=== PATIENT | female | born 1970 | race Caucasian/White ===

== ENCOUNTER → 2019-06-25 | Outpatient (CLI) | payer BC | LOC: MC.RAD 06:55 | DX: R92.8 Other abnormal and inconclusive findings on diagnostic imaging of breast (principal); Z98.82 Breast implant status ==

== ENCOUNTER 2023-12-04 16:02 | Emergency (ER) | payer BC ==
[~2023-12-04] VITALS: Ht 180.3 cm; Wt 104.5 kg
[~2023-12-04 16:02] MED LIST: CEFTIN500 MG PO; EFFEXOR 50M50 MG/TAB PO; NOLVADEX 1010 MG/TAB PO; PYRIDIUM200 M1 PO; SYNTHROID 0.0.025 MG PO
[2023-12-04 16:28] LABS: BASO # 0.1 K/mm3 (0.0-0.2); BASO % 0.9 % (0.0-2.0); EOS # 0.3 K/mm3 (0.0-0.7); EOS % 4.3 % (0.0-4.0); GRAN # 3.1 K/mm3 (1.4-6.5); GRAN % 52.7 % (42.2-75.2); HEMATOCRIT 38.1 % (37.0-47.0); HEMOGLOBIN 13.3 g/dl (12.5-16.0); LYMPH % 35.2 % (20.0-51.0); MEAN CELL VOLUME 90 fl (80.0-100.0); MEAN CORPUSCULAR HEMOGLOBIN 31 pg (27-31); MEAN CORPUSCULAR HGB CONC 35 g/dl (33.0-37.0); MEAN PLATELET VOLUME 9.6 fl (7.4-10.4); MONO # 0.4 K/mm3 (0.1-0.6); MONO % 6.6 % (1.7-9.3); PLATELET COUNT 230 K/mm3 (130-400); RED BLOOD COUNT 4.25 M/mm3 (4.10-5.30); REDCELL DISTRIBUTION WIDTH-CV 12.2 % (11.5-14.5)
[2023-12-04] MEDS ORDERED: NS 1,000 ML IV ONE (16:30)
[2023-12-04 16:47] LABS: ALANINE AMINOTRANSFERASE 22 U/L (0-55); ALBUMIN 4.3 gm/dL (3.5-5.0); ALKALINE PHOSPHATASE 65 U/L (40-150); ANION GAP 12 mmol/L (7-16); AST,SGOT 21 U/L (5-34); BILIRUBIN,TOTAL 0.6 mg/dL (0.2-1.2); BLOOD UREA NITROGEN 18 mg/dL (10-20); CALCIUM 9.5 mg/dL (8.4-10.2); CARBON DIOXIDE 22 mmol/L (22-29); CHLORIDE 105 mmol/L (98-107); CREATININE, serum 0.86 mg/dL (0.57-1.11); GLUCOSE 89 mg/dL (70-99); POTASSIUM 3.7 mmol/L (3.5-4.5); SODIUM 139 mmol/L (136-145); TOTAL PROTEIN 7.7 gm/dL (6.2-8.1)
[2023-12-04 16:59] LABS: TROPONIN-I < 0.010 ng/mL (0.00-0.033)
[2023-12-04 17:04] LABS: C-REACTIVE PROTEIN 0.14 mg/dL (0.00-0.50); MAGNESIUM 2.3 mg/dL (1.6-2.6)
[2023-12-04 17:24] LABS: THYROID STIMULATING HORMONE 2.783 uIU/mL (0.350-4.940)
[2023-12-04] MEDS ORDERED: Ketorolac 30 MG/ML VIAL IV ONE (17:45)
[2023-12-04 19:15] VITALS: BP 121/80; PULSE 71; TEMP 98.7
== END 2023-12-04 19:26 | disposition home or self-care (01) ==
LOC: COL.ER 16:02
PROVIDERS: Emergency Medicine
DX: R07.89 Other chest pain (principal); R00.2 Palpitations; R42 Dizziness and giddiness; F41.9 Anxiety disorder, unspecified; Z79.899 Other long term (current) drug therapy
CPT/HCPCS: J1885; J7030